=== PATIENT | male | born 1960 ===

== ENCOUNTER 2016-03-30 06:09 | Observation (INO) ==
[2016-03-30] MEDS ORDERED: SODIUM CHLORIDE 0.9% 500 ML IV STA (06:24)
[2016-03-30 06:31] LABS: Basophils # 0.1 10*3/uL (0.0-0.2); Eosinophils # 0.1 10*3/uL (0.0-0.87); Eosinophils % 1.8 % (0.00-10.9); Hematocrit 45.1 VOL% (42.0-52.0); Hemoglobin 15.4 GM/DL (14.0-18.0); Immature Granulocytes % 0.4 %; Immature Granulocytes Absolute 0.03 #; Lymphocytes % 27.4 % (21.2-54.2); Mean Corpuscular HGB Conc 34.1 GM/DL (32-36); Mean Corpuscular Hemoglobin 29 PG (27-34); Mean Corpuscular Volume 84.3 FL (87-102); Mean Platelet Volume 10.2 FL (9.6-12.0); Monocytes # 0.8 10*3/uL (0.11-0.8); Monocytes % 10.8 % (1.7-12.7); Neutrophils # 4.2 10*3/uL (1.4-7.4); Neutrophils % 58.6 % (38.7-73.9); Platelet Count 265 T/CUMM (130-400); Red Blood Count 5.35 MC/CUMM (3.8-5.5); Red Cell Distribution Width 13.2 % (9.3-17.3); White Blood Count 7.2 T/CUMM (4-12)
--- NOTE | 2016-03-30 06:33 | Emergency Department Note ---
Edvin Dominguez Meredith, am scribing for, and in the presence of, Rufus Goodwin MD 06: 25. Christa Dominguez James D, MD, personally performed the services described in this documentation, ascribed by Marlene Pardo in my presence, and it is both accurate and complete 633 . Arrival - Arrival Chief Complaint: Weakness Stated Complaint: tia possible stroke ED Nursing Triage Note: Patient to triage. He states this morning when he got up and went to fix coffee he had some weakness and numbness to his left arm, hand and face. Mode of Arrival: Ambulatory Limitations: No Limitations Source: Patient, Old Records Reviewed, RN Notes Reviewed - History of Present Illness HPI Narrative: Pt is a 55 y/o white male reporting to the ED with c/o left-sided weakness and numbness to arm, hand, and face. Onset is unknown. Pt woke up with the deficit. He denies any chest pain, palpitations, shortness of breath, headache, or altered vision. Pt has a history of HTN, TIA, and HLD. His sister had an OH in her 40's. Onset (ago): unknown Allergies/Adverse Reactions: Allergies Allergy/AdvReac Type Severity Reaction Status Date / Time No Known Allergies Allergy Unverified 03/30/16 06:14 Home Medications: Home Medications Medication Instructions Recorded Confirmed Type Aspirin [Ecotrin] 81 mg PO DAILY 03/30/16 03/30/16 History Enalapril Tab [Vasotec Tab] 20 mg PO DAILY 03/30/16 03/30/16 History Omeprazole [Prilosec] 20 mg PO DAILY 03/30/16 03/30/16 History Pravastatin [Pravachol] 40 mg PO DAILY 03/30/16 03/30/16 History Tadalafil [Cialis] 20 mg PO DAILY 03/30/16 03/30/16 History hydroCHLOROthiazide 25 mg PO DAILY 03/30/16 03/30/16 History [Hydrochlorothiazide] Review of System - Review of System 12 point system: reviewed and no additional remarkable complaints except as stated - Review of System Eyes: Present: as per HPI. Absent: vision change Respiratory: Present: as per HPI. Absent: respiratory distress Cardiovascular: Present: as per HPI. Absent: chest pain, palpitations Neurological: Present: as per HPI, weakness (left arm, hand, and face), numbness (left arm, hand, and face). Absent: headache Medical,Surgical,& Family Hx - Medical History Cardio: History of: Hypertension Neurology: History of: TIA Endocrine: History of: Dyslipidemia No history of: Diabetes Mellitus (IDDM), Diabetes Mellitus (NIDDM) Gastrointestinal: History of: GERD - Surgical History Neurologic Surgeries: Patient denies: Neurologic Surgery - Family History Family History: Reports;: Family Heart Disease (sister had an OH in her 40's) - Social History Smoking Status: Never smoker Frequency of Alcohol Use: Occasionally Type of Drug Use: None Exam Physical Examination: GENERAL: This is a well-nourished, well-developed white male in no apparent distress. VITAL SIGNS: Temperature: 98.3, Pulse: 80, Respirations: 18, Blood pressure: 153 /92, O2 Saturation: 96 HEENT: Head is normocephalic and atraumatic. Pupils are equally round and reactive to light. Extraocular movement are intact. Oropharynx is benign with moist mucous membranes. TMs are clear bilaterally. External auditory canals are clear bilaterally. NECK: Neck is soft and supple without tenderness. There are no masses. There is no lymphadenopathy. LUNGS: Lungs are clear to auscultation bilaterally. Chest rises symmetrically. There is no chest wall tenderness. CV: Heart is regular rate and rhythm without murmurs, rubs, or gallops. ABDOMEN: Abdomen is soft, non-tender to palpation. There are no abnormal masses palpated. There is no organomegaly. Bowel sounds are present and active. SKIN: Skin is warm and dry. No rash. EXTREMITIES: Patient has full range of motion without tenderness. There is no pedal edema. NEUROLOGIC: Awake, alert, and oriented x4. Cranial nerves II through XII are grossly intact. There are no motorsensory deficits. PSYCHIATRIC: Normal affect. Normal mood. Vital Signs: Vital Signs Temperature 98.3 F 03/30/16 06:11 Pulse Rate 86 03/30/16 06:18 Respiratory Rate 18 03/30/16 06:18 Blood Pressure 153/92 03/30/16 06:11 O2 Sat by Pulse Oximetry 96 03/30/16 06:11 Course Course Narrative: Pt is not a candidate for tPA due to low NIH score. (NIH: 1) - Consultations Consultation #1: Discussed with hospitalist. Patient will be admitted to their service. Time: 08:45 Results - Labs CBC & BMP: 03/30/16 06:20 03/30/16 06:20 Lab Results: I have reviewed the patients labs Labs: Laboratory Tests 03/30/16 06:20 WBC 7.2 RBC 5.35 Hgb 15.4 Hct 45.1 MCV 84.3 L Plt Count 265 Baso % (Auto) 1.0 H Laboratory Tests 03/30/16 06:20 INR 1.1 PT Patient/Control Mix 11.2 Circ Anticoag PTT 30.3 Laboratory Tests 03/30/16 06:20 Sodium 138 Potassium 4.2 Chloride 105 Carbon Dioxide 23 BUN 16 Creatinine 1.20 Total Bilirubin 1.10 H Troponin I < 0.015 Serum Alcohol < 15 L Laboratory Tests 03/30/16 06:20 Urine pH 7.0 Ur Specific [place] 1.010 Urine Urobilinogen < 2.0 H Urine RBC 1 Urine WBC 1 Laboratory Tests 03/30/16 06:20 Urine Opiates Screen Negative Ur Barbiturates Screen Negative Ur Phencyclidine Scrn Negative U Amphetamine/Methamph Negative U Benzodiazepines Scrn Negative U Cocaine Metab Screen Negative U Cannabinoids Screen Negative - EKG EKG results: interpreted by ERMD - Impressions EKG: Normal sinus rhythm with a rate of 69, normal ST-T waves, normal axis. - Diagnostic Findings Procedure: Chest x-ray: image reviewed by me, report reviewed by me (No acute cardiopulmonary process is identified. ), CT: report reviewed by me (CT head: No acute intracranial abnormality. ) Disposition Clinical Impression: Left face and left arm tingling, Dyslipidemia, Essential hypertension Case discussed with: patient Disposition: Still a Patient Condition: Stable Time of Disposition: 07:36
[2016-03-30 06:44] LABS: INR 1.1; PT Patient Result 11.2 SECS; Partial Thromboplastin Time 30.3 SECS (0-40)
--- NOTE | 2016-03-30 06:54 | EKG Report ---
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
[2016-03-30 07:11] LABS: Alanine Aminotransferase 34 U/L (16-61); Albumin 3.8 G/DL (3.4-5.0); Alkaline Phosphatase 76 U/L (45-117); Aspartate Amino Transferase 27 U/L (0-37); Blood Urea Nitrogen 16 MG/DL (7-18); Glucose 99 MG/DL (74-106); Osmolality,Calculated 275.7 MOS/KG (273-304); Potassium 4.2 MMOL/L (3.5-5.1); Sodium 138 MMOL/L (136-145); Total Protein 7.2 G/DL (6.4-8.3); Troponin I Only < 0.015 NG/ML (0.00-0.045)
--- NOTE | 2016-03-30 07:11 | CT Report ---
CT head/brain wo con Indication: Hemiparesis Comparison: None Technique: Multiple axial tomographic images of the brain were obtained without the use of intravenous contrast. Findings: Midline structures are nondisplaced. There is no acute intracranial hemorrhage or evidence of hydrocephalus. Minimal periventricular and subcortical hypoattenuation noted which is nonspecific but consistent with chronic microvascular ischemic change. Prominent polyp versus mucous retention cyst within the left maxillary sinus. Hypoaeration of the right mastoid air cells. IMPRESSION: No acute intracranial abnormality demonstrated. PROCEDURE INTERPRETED AT [facility] DEPARTMENT OF RADIOLOGY Final Report Signed by: Dr Derek Sampson
[2016-03-30 07:24] LABS: Apearance,Urine CLEAR (Clear); Bilirubin,Urine Negative (Negative); Blood, Urine Negative (Negative); Glucose,Urine (UA) Negative (Negative); Ketones,Urine Negative (Negative); Nitrite,Urine Negative (Negative); Protein,Urine Negative; RBC,Urine 1 /HPF (0-4); Urine Color Yellow (Yellow); Urine Urobilinogen < 2.0 EU/DL (0.2-1.0); WBC,Urine 1 /HPF (0-6)
[2016-03-30 07:29] LABS: Barbiturates Screen,Urine Negative (Negative); Benzodiazepines Screen,Urine Negative (Negative); Cannabinoid Screen,Urine Negative (Negative); Opiate Screen,Urine Negative (Negative); Phencyclidine Screen,Urine Negative (Negative)
--- NOTE | 2016-03-30 07:49 | XRay Report ---
XR chest 2V Indication: Cardiomegaly Comparison: None Technique: Frontal and lateral views of the chest Findings: Heart size appears within normal limits. No focal consolidation, pleural effusion, or pneumothorax. Osseous and surrounding soft tissue structures demonstrate no acute abnormality. IMPRESSION: No acute cardiopulmonary process demonstrated. PROCEDURE INTERPRETED AT [facility] DEPARTMENT OF RADIOLOGY Final Report Signed by: Dr Derek Sampson
[2016-03-30] MEDS ORDERED: ZALEPLON 5 MG CAPSULE PO PRN (08:46)
[2016-03-30] MEDS ORDERED: DOCUSATE SODIUM 100 MG CAPSULE PO PRN (08:46)
[2016-03-30] MEDS ORDERED: MORPHINE 2 MG/1 ML SYRINGE IV PRN (08:46)
[2016-03-30] MEDS ORDERED: ONDANSETRON 4 MG/2 ML VIAL IV PRN (08:46)
[2016-03-30] MEDS ORDERED: LABETALOL 20 MG/4 ML SYRINGE IV PRN (08:46)
[2016-03-30] MEDS ORDERED: ACETAMINOPHEN 325 MG TABLET PO PRN (08:46)
[2016-03-30] MEDS ORDERED: PANTOPRAZOLE 40 MG TABLET PO SCH (09:00)
[2016-03-30] MEDS ORDERED: ENALAPRIL 10 MG TABLET PO SCH (09:00)
[2016-03-30] MEDS ORDERED: SODIUM CHLORIDE 0.9% 1,000 ML IV SCH (09:00)
[2016-03-30] MEDS ORDERED: ASPIRIN 325 MG TABLET PO SCH (09:00)
--- NOTE | 2016-03-30 09:19 | Hospitalist History & Physical ---
Assessment and Plan - Time spent with patient Time spent with patient: Greater than 30 minutes (due to assessment, plan and documentation.) (1) TIA (transient ischemic attack) Status: Suspected Assessment and plan: admit observation vte prophylaxis asa 325 mg po daily carotid u/s mri brain neuro eval pt/ot/st swallowing eval Current Visit: Yes (2) Dyslipidemia Status: Acute Assessment and plan: on statin followed by Dr. Luo Current Visit: Yes (3) Essential hypertension Status: Acute Assessment and plan: well controlled /on medications, followed by Dr. Luo BP at this time 108/72 hydralazine PRN Current Visit: Yes (4) Left face and left arm tingling Status: Resolved Current Visit: Yes History of Present Illness Chief complaint: numbness and tingling on left side History of present illness: Mr. Thacker is a 55 year old male who presents to the ED today after having left sided numbness and tingling. He states that his symptoms began this morning. He also states that he thought the left side of his mouth was drooping slightly. At time of interview, ultrasound is performing his carotid u/s. He does not appear to have any left sided droop at this time. He states that he "thinks" that his numbness and tingling have resolved. 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 Smile is equal and tongue is midline. Pupils are equal and reactive. He does have a hx of Hyperlipidemia for which he is already on a statin for and Hypertension, well controlled with medications. He is active and states that he goes to the gym daily and runs triathalons. We will admit him overnight and work up for possible stroke. Neurology has been consulted. Home Medications Medication Instructions Recorded Confirmed Type Aspirin [Ecotrin] 81 mg PO DAILY 03/30/16 03/30/16 History Enalapril Tab [Vasotec Tab] 20 mg PO DAILY 03/30/16 03/30/16 History Omeprazole [Prilosec] 20 mg PO DAILY 03/30/16 03/30/16 History Pravastatin [Pravachol] 40 mg PO DAILY 03/30/16 03/30/16 History Tadalafil [Cialis] 20 mg PO DAILY 03/30/16 03/30/16 History hydroCHLOROthiazide 25 mg PO DAILY 03/30/16 03/30/16 History [Hydrochlorothiazide] Allergies Allergy/AdvReac Type Severity Reaction Status Date / Time No Known Allergies Allergy Unverified 03/30/16 06:14 Medical,Surgical,& Family Hx - Medical History Cardio: History of: Hypertension Neurology: History of: TIA Endocrine: History of: Dyslipidemia No history of: Diabetes Mellitus (IDDM), Diabetes Mellitus (NIDDM) Gastrointestinal: History of: GERD - Surgical History Surgical History: noncontributory Neurologic Surgeries: Patient denies: Neurologic Surgery - Family History Family History: Reports;: Family Heart Disease (sister had an ME in her 40's) - Social History Smoking Status: Never smoker Frequency of Alcohol Use: Occasionally Type of Drug Use: None Marital Status: Lives With:: Spouse Functional capacity: independent ambulation - Constitutional Constitutional: Present: weakness. Absent: chills, fever(s) - EENT Eyes: Absent: blurry vision, diplopia Ears: Absent: decreased hearing, tinnitus Nose, mouth and throat: Absent: dysphagia, headache(s) - Cardiovascular Cardiovascular: Absent: chest pain at rest, dyspnea, dyspnea on exertion, edema - Respiratory Respiratory: Absent: cough, dyspnea, hemoptysis - Gastrointestinal Gastrointestinal: Absent: abdominal pain, melena, nausea, vomiting - Genitourinary Genitourinary: Absent: difficulty urinating, hematuria - Musculoskeletal Musculoskeletal: Absent: arthralgias, joint swelling - Neurological Neurological: Present: numbness (resolved at this time). Absent: confusion, dizziness, headache(s) - Psychiatric Psychiatric: Absent: anxiety, confusion, depression - Endocrine Endocrine: Absent: cold intolerance, heat intolerance - Hematologic/Lymphatic Hematologic/Lymphatic: Absent: easy bleeding, easy bruising Exam - Constitutional Vitals: Period Temp Pulse Resp BP Sys/Mayes Pulse Ox Last 24 Hr 98.3 F 80-86 18-18 153/92 96 General appearance: normal weight, no acute distress - Head Head exam: Present: normal inspection, normocephalic - Eye Eye exam: Present: EOMI. Absent: scleral icterus Pupils: Present: FRE, normal accommodation - ENT ENT exam: Present: normal exam, normal oropharynx - Neck Neck exam: Present: normal inspection. Absent: lymphadenopathy - Respiratory Respiratory exam: Present: clear to auscultation bilaterally. Absent: accessory muscle use - Cardiovascular Cardiovascular exam: Present: regular rate and rhythm. Absent: carotid bruit - GI/Abdominal GI/Abdominal exam: Present: normal bowel sounds, soft. Absent: tenderness - Extremities Exam Extremities exam: Present: normal inspection. Absent: edema - Back Exam Back exam: Present: normal inspection. Absent: muscle spasm - Neurological Exam Neurological exam: Present: alert, oriented X3, CN II-XII intact, reflexes normal. Absent: motor sensory deficit - Psychiatric Psychiatric exam: Present: normal affect, normal mood - Skin Skin exam: Present: normal color, warm, dry, intact Results - Labs CBC & BMP: 03/30/16 06:20 03/30/16 06:20 Lab Results: I have reviewed the past 24 hour labs
[2016-03-30 09:26] LABS: Risk Ratio 2.93
--- NOTE | 2016-03-30 10:21 | Ultrasound Report ---
US carotid duplex BI Indication: Possible TIA. Comparison: None. Technique: Multiple longitudinal and transverse real-time sonographic images of the bilateral carotid arterial systems are obtained with grayscale, spectral, and color Doppler analysis. Findings: Peak systolic velocities within the right CCA, proximal ICA, and distal ICA are 93, 93, and 68 cm/s respectively. Peak systolic velocities within the left CCA, proximal ICA, and distal ICA are 92, 100, and 76 cm/s respectively. ICA/CCA ratios on the right and left are 1.0 and 1.1 respectively. Antegrade flow demonstrated within the bilateral vertebral arteries. Grayscale imaging demonstrates minimal bilateral atherosclerotic plaque. IMPRESSION: No convincing sonographic evidence of significant (50% or greater) narrowing of either cervical internal carotid artery. NASCET criteria utilized. PROCEDURE INTERPRETED AT [facility] DEPARTMENT OF RADIOLOGY Final Report Signed by: Dr Derek Sampson
[2016-03-30] MEDS ORDERED: PRAVASTATIN 40 MG TABLET PO SCH ×2 (11:38→21:00)
[2016-03-30] MEDS ORDERED: NON-FORMULARY MEDICATION (Tadalafil [Cialis] 20 MG) PO SCH (11:38)
[2016-03-30] MEDS ORDERED: hydroCHLOROthiazide 25 MG TABLET PO SCH (11:38)
--- NOTE | 2016-03-30 11:48 | Magnetic Resonance Report ---
MRI brain without contrast Indication: Left upper extremity weakness and paresthesias. Comparison: None available Technique: Axial sagittal and coronal imaging of the brain is performed without contrast. T1, T2, FLAIR and diffusion weighted sequences are performed. Findings: No evidence of restricted diffusion seen. No evidence of intracranial hemorrhage, mass, mass effect or midline shift is seen. The brain parenchyma has normal signal and differentiation. The ventricles and cisterns are appropriate in caliber. Posterior fossa, mid brain and pituitary gland appear within normal limits. No evidence of cranial or skull base abnormality seen. Impression: No evidence of abnormality demonstrated PROCEDURE INTERPRETED AT [facility] DEPARTMENT OF RADIOLOGY Final Report Signed by: Dr. Santy Guevara
[2016-03-30] MEDS ORDERED: ENALAPRIL 20 MG TABLET PO SCH (12:30)
--- NOTE | 2016-03-30 15:08 | Neurology Consult Note ---
History of Present Illness History of present illness: Mr. Thacker is a 55 year old right-handed white gentleman who presents to the ED today after having left sided numbness and tingling primarily on the face. He states that his symptoms began this morning. He also states that he thought the left side of his mouth was drooping slightly. He states that he "thinks" that his numbness and tingling have resolved. 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 MRI of the brain revealed no acute abnormalities. Carotid ultrasound and lipid profile are all unremarkable. He does have a hx of Hyperlipidemia for which he is already on a statin for and Hypertension, well controlled with medications. He is active and states that he goes to the gym daily and runs triathalons. Patient does take an aspirin a day Home Medications Medication Instructions Recorded Confirmed Type Aspirin [Ecotrin] 81 mg PO DAILY 03/30/16 03/30/16 History Enalapril Tab [Vasotec Tab] 20 mg PO DAILY 03/30/16 03/30/16 History Omeprazole [Prilosec] 20 mg PO DAILY 03/30/16 03/30/16 History Pravastatin [Pravachol] 40 mg PO DAILY 03/30/16 03/30/16 History Tadalafil [Cialis] 20 mg PO DAILY 03/30/16 03/30/16 History hydroCHLOROthiazide 25 mg PO DAILY 03/30/16 03/30/16 History [Hydrochlorothiazide] Allergies Allergy/AdvReac Type Severity Reaction Status Date / Time No Known Allergies Allergy Unverified 03/30/16 06:14 12 point system: reviewed and no additional remarkable complaints except as stated Medical,Surgical,& Family Hx - Medical History Cardio: History of: Hypertension Neurology: History of: TIA Endocrine: History of: Dyslipidemia No history of: Diabetes Mellitus (IDDM), Diabetes Mellitus (NIDDM) Gastrointestinal: History of: GERD - Surgical History Neurologic Surgeries: Patient denies: Neurologic Surgery - Family History Family History: Reports;: Family Heart Disease (sister had an NE in her 40's) - Social History Smoking Status: Never smoker Frequency of Alcohol Use: Occasionally Type of Drug Use: None Exam - Constitutional Vitals: Period Temp Pulse Resp BP Sys/Mayes Pulse Ox Last 24 Hr 98.4 F 71-72 16-20 108-113/67-72 95-95 Exam: GENERAL: Patient is in no acute distress. NECK: Neck is supple. There is no JVD. No carotid bruits present. No thyroid masses. CVS: First and second heart sounds are normal. There is no S3 present. Regular rate and rhythm. RESPIRATORY: Lungs are clear to auscultation without any rales or rhonchi. ABDOMEN: Soft and non-tender. Bowel sounds are present. There is no hepatosplenomegaly. EXT: There is no palpable edema. Peripheral pulses are present. Skin: No rashes Central Nervous system: General: Alert, awake and Oriented x 3 Speech: Fluent Comprehension: Intact and normal Facial expressions: Normal Cranial Nerves: CN1/Olfactory: Normal CN II/ Optic: Normal, Visual Sandhu unreliable CN III, and : FER & EOMI CN V: Normal & intact CN VII: face is symmetric CNVIII: Normal CN XI/X/XI/XII: Intact and Normal Motor: Bulk and Tone is normal. Strength in the right 5/5 Strength in the left 5/5 Sensory: Grossly intact for all the modalities of PP, LT and temp sense Reflexes: 1+ and symmetrical Cerebellar function: Normal finger to nose and heel to ace testing. Gait: Normal heel to heel and toe to toe and tandem walk. Results - Labs CBC & BMP: 03/30/16 06:20 03/30/16 06:20 Assessment and Plan (1) TIA (transient ischemic attack) Status: Suspected Assessment and plan: Stop aspirin Start Aggrenox 1 twice a day Okay to go home from neuro standpoint Follow-up in 4 weeks Current Visit: Yes
--- NOTE | 2016-03-30 15:22 | Discharge Summary ---
Hospital Course - Hospital Course Hospital Course: Mr. Thacker is a 55-year-old very active man with a history of hypertension hyperlipidemia presented here today complaining of left side numbness and weakness mostly of the face. He also felt that he had some left-sided facial droop. He presented to the emergency department where his vitals were stable and the symptoms had resolved. CT of the head revealing acute findings he was admitted to regular medicine floor under the engine monitor where he did have an MRI which was negative and carotid sutures negative. Neurology was consulted and suspected he did likely have a TIA. He is now stable to be discharged home. He was R radial aspirin prior to admissions this will be discontinued and he will be placed on Aggrenox. His blood pressure is well- controlled he's already on statin. - Time spent with patient Time with patient DS: Less than 30 minutes Diagnosis - Discharge Diagnosis (1) Dyslipidemia Status: Acute (2) Essential hypertension Status: Acute (3) TIA (transient ischemic attack) Status: Suspected Discharge Plan - Discharge Data Disposition: Disch To Home/Self Care Condition at Discharge: Stable Discharge Diet: low fat, low cholesterol, low salt diet Activity: resume usual activities as tolerated Hygiene: no restrictions Contact your physician if you experience:: fever over 101, Shortness of breath - Discharge Medications New Dipyridamole/Aspirin 200-25 [Aggrenox] 1 capsule PO BID #60 capsule Continue Omeprazole [Prilosec] 20 mg PO DAILY hydroCHLOROthiazide [Hydrochlorothiazide] 25 mg PO DAILY Pravastatin [Pravachol] 40 mg PO DAILY Tadalafil [Cialis] 20 mg PO DAILY Enalapril Tab [Vasotec Tab] 20 mg PO DAILY Discontinued Aspirin [Ecotrin] 81 mg PO DAILY - Follow Up or Referral - Forms/Instructions Exam - Constitutional Vitals: Period Temp Pulse Resp BP Sys/Mayes Pulse Ox Last 24 Hr 98.4 F 71-72 16-20 108-113/67-72 95-95 General appearance: no acute distress - Head Head exam: Present: normocephalic, atraumatic - Eye Eye exam: Present: EOMI Pupils: Present: FER - ENT ENT exam: Present: normal exam - Respiratory Respiratory exam: Present: clear to auscultation bilaterally - Cardiovascular Cardiovascular exam: Present: regular rate and rhythm - GI/Abdominal GI/Abdominal exam: Present: normal bowel sounds, soft - Extremities Exam Extremities exam: Present: full ROM - Neurological Exam Neurological exam: Present: alert, oriented X3, CN II-XII intact - Psychiatric Psychiatric exam: Present: normal affect, normal mood - Skin Skin exam: Present: normal color, warm, intact Discharge Results Labs on day of discharge: Labs from last 24 hours 03/30/16 03/30/16 11:58 09:26 Troponin I < 0.015 < 0.015 DS: Provider Date of admission: 03/30/16 08:46 Primary care physician: . No PCP Attending physician on admission: Denisse Galeano MD Discharging clinician: Denisse Galeano MD Expected date of discharge: 03/30/16
[2016-03-30 17:51] VITALS: BP 141/68
[2016-03-30] MEDS ORDERED: ENOXAPARIN 40 MG/0.4 ML SYRINGE SUBCUT SCH (21:00)
[2016-03-30] MEDS ORDERED: DIPYRIDAMOLE/ASPIRIN 200-25 MG CAPSULE PO SCH (21:00)
== END 2016-03-30 17:55 | disposition home or self-care (01) ==
LOC: N.EDINP 06:09 → N.ED 06:09 → N.EDINP 10:07 → N.2E 11:37
PROVIDERS: ADMIT Family Medicine; ATTEND Family Medicine